=== PATIENT | female | born 1995 | race Caucasian/White ===

== ENCOUNTER 2020-10-12 11:51 | Outpatient (CLI) | payer BC ==
[2020-10-13 01:13] LABS: SARS-CoV-2 PCR by NAA Not Detected (NotDetected)
== END 2020-10-12 11:52 | disposition home or self-care (01) ==
LOC: CSHLAB 11:51
PROVIDERS: ATTEND Student in an Organized Health Care Education/Training Program
DX: Z20.822 Contact with and (suspected) exposure to COVID-19 (principal)
CPT/HCPCS: U0003; U0005

== ENCOUNTER 2020-10-14 05:26 | Inpatient (IN) | payer BC ==
[2020-10-14 06:04] VITALS: BMI 29.0
[2020-10-14 06:32] LABS: Fetal Membranes Rupture No Membranes Rupture (No Rupture)
[2020-10-14] MEDS ORDERED: HYDROcodone/Acetaminophen 5/325 mg Tablet PO PRN ×4 (07:24→21:39)
[2020-10-14] MEDS ORDERED: Butorphanol Tartrate 1 MG/ML VIAL SLOW IVP PRN (07:24)
[2020-10-14] MEDS ORDERED: Diphenoxylate HCl/Atropine Tablet PO PRN ×2 (07:24)
[2020-10-14] MEDS ORDERED: Ibuprofen 800 MG TAB PO PRN (07:24)
[2020-10-14] MEDS ORDERED: Promethazine HCl 25 MG/ML VIAL IM PRN ×2 (07:24→10:53)
[2020-10-14] MEDS ORDERED: Lidocaine 1% (PF) 30 ML VIAL SC PRN (07:24)
[2020-10-14] MEDS ORDERED: Carboprost 250 MCG/ML AMP IM PRN (07:24)
[2020-10-14] MEDS ORDERED: hydrALAZINE 20 MG/ML VIAL SLOW IVP PRN ×2 (07:24→21:39)
[2020-10-14] MEDS ORDERED: Acetaminophen 500 MG TAB PO PRN (07:24)
[2020-10-14] MEDS ORDERED: Misoprostol 200 MCG TAB PR PRN (07:24)
[2020-10-14] MEDS ORDERED: Ondansetron PF 4 MG/2 ML Vial IVP PRN ×3 (07:24→21:39)
[2020-10-14] MEDS ORDERED: Methylergonovine 0.2 MG/ML VIAL IM PRN (07:24)
[2020-10-14] MEDS ORDERED: NS w/ Oxytocin 30 units 500 ML IV SCH (07:30)
[2020-10-14] MEDS ORDERED: Lactated Ringer's 1,000 ML IV SCH (07:30)
[2020-10-14 08:20] LABS: Hemoglobin 10.8 g/dL (12.0-15.5); Mean Corpuscular HGB CONC 32.1 g/dL (32.0-36.0); Mean Corpuscular Hemoglobin 24.7 pg (27.0-33.0); Mean Corpuscular Volume 76.9 fl (81.6-98.3); Mean Platelet Volume 10.4 fl (7.4-10.4); Platelet Count 260 10x3/uL (150-450); RBC Distribution Width 15.2 % (11.5-14.5); Red Blood Cell (RBC) Count 4.37 10x6/uL (3.90-5.03); White Blood Cell (WBC) Count 9.5 10x3/uL (3.5-10.5)
[2020-10-14 09:11] LABS: Hep B Surf Ag Non-Reactive S/CO (NonReactive); Syphilis Antibody Nonreactive (Nonreactive); Syphilis Antibody Index 0.05 S/CO (<1.00 Non-Reactive)
[2020-10-14 09:12] LABS: HBSAg Index 0.12 S/CO (0-0.99)
[2020-10-14] MEDS ORDERED: Fentanyl 2 mcg/Bup 0.1% Cadd 100 ML ONE (09:18)
[2020-10-14] MEDS ORDERED: Hydrocerin (Eucerin) Cream 120 gm Jar TOP PRN (10:53)
[2020-10-14] MEDS ORDERED: Lactated Ringer's 500 ML IV PRN (10:53)
[2020-10-14] MEDS ORDERED: ePHEDrine Sulfate 50 MG/10 ML VIAL SLOW IVP PRN (10:53)
[2020-10-14] MEDS ORDERED: Acetaminophen 325 MG TAB PO PRN (10:53)
[2020-10-14] MEDS ORDERED: diphenhydrAMINE 50 MG/ML VIAL IVP PRN (10:53)
[2020-10-14] MEDS ORDERED: Naloxone HCl 0.4 mg/ml Vial IVP PRN ×2 (10:53)
[2020-10-14] MEDS ORDERED: Fentanyl 2 mcg/Bupivacaine 0.1% Cassette 100 ML EPIDURAL SCH ×2 (11:00)
[2020-10-14] MEDS ORDERED: Communication Order-Pharmacy FS SCH (11:00)
[2020-10-14] MEDS ORDERED: Lanolin Ointment 7 GM TUBE TOP PRN (21:39)
[2020-10-14] MEDS ORDERED: Preparation H Ointment 28 GM TUBE PR PRN (21:39)
[2020-10-14] MEDS ORDERED: diphenhydrAMINE 25 MG CAP PO PRN (21:39)
[2020-10-14] MEDS ORDERED: Boostrix 0.5 ML (Tdap) VIAL IM ONE (21:39)
[2020-10-14] MEDS ORDERED: Milk Of Magnesia 30 ML UDCUP PO PRN (21:39)
[2020-10-14] MEDS ORDERED: Bisacodyl 10 MG SUPP PR PRN (21:39)
[2020-10-14] MEDS ORDERED: Docusate Calcium (SURFAK) 240 MG CAP PO SCH (22:00)
[2020-10-15] MEDS: Ibuprofen 800 MG TAB PO SCH ×3 (04:19→13:45)
[2020-10-15 08:07] VITALS: BP 127/68; TEMP 98.1
[2020-10-15] MEDS: Ferrous Sulfate 325 MG TAB PO SCH ×2 (08:19→14:16)
[2020-10-15] MEDS ORDERED: Docusate Calcium (SURFAK) 240 MG CAP PO SCH (09:00)
[2020-10-15] MEDS ORDERED: Prenatal Vitamin 1 TAB PO SCH (09:00)
== END 2020-10-15 19:11 | disposition home or self-care (01) | DRG 807 ==
LOC: CSHLD/OP 05:26 → CSHLD 07:56 → CSHPP 10-15 04:10
PROVIDERS: ADMIT Student in an Organized Health Care Education/Training Program; ATTEND Student in an Organized Health Care Education/Training Program
PROC: 10E0XZZ Delivery of Products of Conception, External Approach (ICD-10-PCS; principal; 2020-10-14)
DX: O80 Encounter for full-term uncomplicated delivery (principal); Z37.0 Single live birth; Z3A.38 38 weeks gestation of pregnancy
CPT/HCPCS: 51702; 84112; 85027; 86780; 86850; 86900; 86901; 87340; 99285; U0003; U0005